=== PATIENT | male | born 1985 | race Caucasian/White ===

== ENCOUNTER 2018-05-10 19:54 | Emergency (ER) | payer SELFPAY ==
[~2018-05-10] VITALS: Ht 175.3 cm; Wt 79.0 kg
[2018-05-10] MEDS ORDERED: KETOROLAC 60MG/2ML VIAL IM STA (20:38)
[2018-05-10 23:10] VITALS: BP 118/65
== END 2018-05-10 23:30 | disposition home or self-care (01) ==
LOC: ER 19:54
DX: S43.491A Other sprain of right shoulder joint, initial encounter (principal); F12.10 Cannabis abuse, uncomplicated; W11.XXXA Fall on and from ladder, initial encounter; Y93.89 Activity, other specified; Y92.018 Other place in single-family (private) house as the place of occurrence of the external cause
CPT/HCPCS: 73030; 96372; 99284; J1885; A4565